=== PATIENT | male | born 1945 | race Caucasian/White ===

== ENCOUNTER 2016-12-17 11:39 | Day surgery (SDC) | payer MEDICARE, MEDICAID ==
[2016-12-17] MEDS ORDERED: Lactated Ringer's 500 ML IV ONE (12:11)
[2016-12-17] MEDS ORDERED: Propofol 10 mg/ml Inj (20 ML) ONE (12:52)
[2016-12-17 13:23] VITALS: TEMP 97
[2016-12-17 13:35] VITALS: BP 116/67; PULSE 76; RESP 23; O2SAT 99
== END 2016-12-17 13:48 | disposition home or self-care (01) ==
LOC: H.ENDO 11:39
PROVIDERS: ATTEND Internal Medicine Gastroenterology
DX: R10.13 Epigastric pain (principal); E78.5 Hyperlipidemia, unspecified; I10 Essential (primary) hypertension; K22.8 Other specified diseases of esophagus; K31.9 Disease of stomach and duodenum, unspecified
CPT/HCPCS: 43239; 88305; J2001; J2704; J7120